=== PATIENT | female | born 1980 | race Hispanic/Latino ===

== ENCOUNTER 2019-06-07 20:58 | Emergency (ER) | payer MEDICAID ==
--- NOTE | 2019-06-07 22:00 | Emergency Department Report ---
Blank Doc - Documentation Documentation: 39-year-old female that presents with right ankle/foot pain s/p fall. This initial assessment/diagnostic orders/clinical plan/treatment(s) is/are subject to change based on patient's health status, clinical progression and re- assessment by fellow clinical providers in the ED. Further treatment and workup at subsequent clinical providers discretion. Patient/guardians urged not to elope from the ED as their condition may be serious if not clinically assessed and managed. Initial orders include: 1- Patient sent to [facility] for further evaluation and treatment 2- xrays
--- NOTE | 2019-06-07 23:19 | XRay Report ---
Right foot, 3 views INDICATION: Pain following fall this morning FINDINGS: The foot is intact with no fracture, dislocation or arthritic change. No significant abnorm ality. Signer Name: Ron Powers MD Signed: 06/07/2019 11:14 PM Workstation Name: [id number]
--- NOTE | 2019-06-07 23:20 | XRay Report ---
Right ankle, 3 views INDICATION: Pain following fall this morning FINDINGS: Ankle mortise is intact. No fracture or dislocation. No spurring or arthritic change. No de finite joint effusion. There may be soft tissue swelling anterior to the ankle. Otherwise no signific ant abnormality. Signer Name: Ron Powers MD Signed: 06/07/2019 11:15 PM Workstation Name: [id number]
--- NOTE | 2019-06-08 03:35 | Emergency Department Report ---
ED Lower Extremity HPI - General Chief Complaint: Extremity Injury, Lower Stated Complaint: FELL RIGHT FOOT PAIN Time Seen by Provider: 06/07/19 21:59 Source: patient, family Mode of arrival: Ambulatory Limitations: No Limitations - History of Present Illness Initial Comments: Patient is a 39-year-old female who presents for right foot p ain. Patient states she stopped it several coming down steps yesterday. Patient is partially weightbearing there is no swelling no deformity. There is no numbness no tingling. Complaint: foot injury Onset/Timin -: days(s) Injury: Foot: Right (clear right lateral foot pain) Type of Injury: blunt Place: home Severity: moderate Severity scale (0 -10): 4 Improves With: nothing Worsens With: weight bearing, movement, palpation Context: fall Associated Symptoms: snap/pop sensation - Related Data Previous Rx's Medication Instructions Recorded Last Taken Type Naproxen 500 mg PO BID PRN #30 tablet 06/08/19 Unknown Rx Allergies Allergy/AdvReac Type Severity Reaction Status Date / Time No Known Allergies Allergy Unverified 06/07/19 22:09 ED Review of Systems ROS: Stated complaint: FELL RIGHT FOOT PAIN Other details as noted in HPI Constitutional: denies: chills, fever Eyes: denies: eye pain, eye discharge, vision change ENT: denies: ear pain, throat pain Respiratory: denies: cough, shortness of breath, wheezing Cardiovascular: denies: chest pain, palpitations Endocrine: no symptoms reported Gastrointestinal: denies: abdominal pain, nausea, diarrhea Genitourinary: denies: urgency, dysuria, discharge Musculoskeletal: myalgia. denies: back pain Skin: denies: rash, lesions Neurological: denies: headache, weakness, paresthesias Psychiatric: denies: anxiety, depression Hematological/Lymphatic: denies: easy bleeding, easy bruising ED Past Medical Hx - Past Medical History Previous Medical History?: Yes Hx Psychiatric Treatment: Yes (ADHD) - Surgical History Past Surgical History?: No - Social History Smoking Status: Never Smoker Substance Use Type: None - Medications Home Medications: Home Medications Medication Instructions Recorded Confirmed Last Taken Type Naproxen 500 mg PO BID PRN #30 tablet 06/08/19 Unknown Rx ED Physical Exam - General Limitations: No Limitations General appearance: alert, in no apparent distress - Head Head exam: Present: atraumatic, normocephalic - Eye Eye exam: Present: normal appearance, PERRL, EOMI Pupils: Present: normal accommodation - ENT ENT exam: Present: mucous membranes moist - Neck Neck exam: Present: normal inspection - Respiratory Respiratory exam: Present: normal lung sounds bilaterally. Absent: respiratory distress, wheezes, stridor - Cardiovascular Cardiovascular Exam: Present: regular rate, normal rhythm, normal heart sounds. Absent: systolic murmur, diastolic murmur, rubs, gallop - GI/Abdominal GI/Abdominal exam: Present: soft, normal bowel sounds. Absent: distended, tenderness, bruit, hernia - Extremities Exam Extremities exam: Present: normal inspection, full ROM, normal capillary refill - Expanded Lower Extremity Exam Right Foot/Toe exam: Present: full ROM, tenderness, swelling. Absent: abrasion, laceration, ecchymosis, deformity, crepidus, dislocation, erythema, amputation, puncture wound, foreign body, calcaneal tenderness, tenderness at base of 5th metatarsal, nail avulsion, subungual hematoma Neuro vascular tendon exam: Absent: pulse deficit, motor deficit, sensory deficit, tendon deficit Gait: Positive: observed and limited by pain - Back Exam Back exam: Present: normal inspection, full ROM. Absent: tenderness, CVA tenderness (R), CVA tenderness (L) - Neurological Exam Neurological exam: Present: alert, oriented X3, CN II-XII intact, normal gait, reflexes normal. Absent: motor sensory deficit - Expanded Neurological Exam Expanded Patient oriented to: Present: person, place, time Speech: Present: fluid speech Motor strength exam: RUE: 5, LUE: 5, RLE: 5, LLE: 5 Best Eye Response ([place]): (4) open spontaneously Best Motor Response ([place]): (6) obeys commands Best Verbal Response ([place]): (5) oriented [place] Total: 15 - Psychiatric Psychiatric exam: Present: normal affect, normal mood - Skin Skin exam: Present: warm, dry, intact, normal color. Absent: rash ED Course Vital Signs 06/07/19 22:03 Temperature 98 F Pulse Rate 78 Respiratory 18 Rate Blood Pressure 132/67 [Left] O2 Sat by Pulse 100 Oximetry ED Lower Extremity MDM - Radiology Data Radiology results: report reviewed, image reviewed Ordering Physician: SAMUEL VALDES NP Date of Service: 06/07/19 Procedure(s): XR foot 3+V RT Accession Number(s): [id number] cc: SAMUEL VALDES NP Fluoro Time In Minutes: Right foot, 3 views INDICATION: Pain following fall this morning FINDINGS: The foot is intact with no fracture, dislocation or arthritic change. No significant abnormality. Signer Name: Ron Powers MD Signed: 06/07/2019 11:14 PM Workstation Name: [id number] Transcribed By: KEYA Dictated By: Ron Powers MD Electronically Authenticated By: Ron Powers MD Signed Date/Time: 06/07/192313 DD/ 13 TD/TT: Ordering Physician: SAMUEL VALDES NP Date of Service: 06/07/19 Procedure(s): XR ankle 3+V RT Accession Number(s): [id number] cc: SAMUEL VALDES NP Fluoro Time In Minutes: Right ankle, 3 views INDICATION: Pain following fall this morning FINDINGS: Ankle mortise is intact. No fracture or dislocation. No spurring or arthritic change. No definite joint effusion. There may be soft tissue swelling anterior to the ank le. Otherwise no significant abnormality. Signer Name: Ron Powers MD Signed: 06/07/2019 11:15 PM Workstation Name: [id number] Transcribed By: KEYA Dictated By: Ron Powers MD Electronically Authenticated By: Ron Powers MD Signed Date/Time: 06/07/192314 DD/ 13 TD/TT: - Medical Decision Making this is a foot strain, plan ortho shoe, walker , nsaids prn , follow up with pcp in 2-3 days, return to ed if symptoms worsen, pt verbalized agreement and understanding of discharge plan. Critical care attestation.: If time is entered above; I have spent that time in minutes in the direct care of this critically ill patient, excluding procedure time. ED Disposition Clinical Impression: Sprain of foot, right Qualifiers: Encounter type: initial encounter Qualified Code(s): S93.601A - Unspecified sprain of right foot, initial encounter Disposition: TO HOME OR SELFCARE Is pt being admited?: No Does the pt Need Aspirin: No Condition: Stable Instructions: Foot Sprain (ED), Ankle Exercises (GEN) Prescriptions: Naproxen 500 mg PO BID PRN #30 tablet PRN Reason: pain Referrals: PRIMARY CARE, [Primary Care Provider] - 3-5 Days Forms: Work/School Release Form(ED) Time of Disposition: 03:55
[2019-06-08 07:19] VITALS: BP 130/70
== END 2019-06-08 04:30 | disposition home or self-care (01) ==
LOC: ED 20:58
DX: S93.601A Unspecified sprain of right foot, initial encounter (principal); F90.9 Attention-deficit hyperactivity disorder, unspecified type; Z79.899 Other long term (current) drug therapy; X58.XXXA Exposure to other specified factors, initial encounter; Y93.89 Activity, other specified; Y92.89 Other specified places as the place of occurrence of the external cause; Y99.8 Other external cause status